=== PATIENT | female | born 1945 | race Caucasian/White ===

== ENCOUNTER 2017-06-27 07:11 | Inpatient (IN) | payer OTHER ==
[~2017-06-27] VITALS: Ht 162.6 cm; Wt 94.6 kg
[~2017-06-27 07:11] MED LIST: AMLO10TA2 PO
[2017-06-27] MEDS ORDERED: GENTAMICIN SULF 80 MG/2 ML VIAL ONE (08:23)
[2017-06-27] MEDS ORDERED: CELECOXIB 100 MG CAP ONE (08:23)
[2017-06-27] MEDS ORDERED: ACETAMINOPHEN IV 100 ML IV ONE (08:23)
[2017-06-27] MEDS ORDERED: PREGABALIN CAPSULE 75 MG CAP ONE (08:23)
[2017-06-27] MEDS ORDERED: VANCOMYCIN PER PHARMACY 0 MG IV SCH (08:30)
[2017-06-27] MEDS ORDERED: CELECOXIB 100 MG CAP PO ONE (08:30)
[2017-06-27] MEDS ORDERED: ACETAMINOPHEN IV 1000 MG/100ML (10MG/ML) IV ONE (08:30)
[2017-06-27] MEDS ORDERED: PREGABALIN CAPSULE 75 MG CAP PO ONE (08:30)
[2017-06-27] MEDS ORDERED: VANCOMYCIN 1GM/250ML 250 ML IV ONE (09:00)
[2017-06-27] MEDS ORDERED: VANCOMYCIN HCL 1000 MG VL ONE (09:10)
[2017-06-27] MEDS ORDERED: MORPHINE SULF(PF) 0.5MG/ML 10ML VIAL ONE (09:10)
[2017-06-27] MEDS ORDERED: KETOROLAC TROMETH 30 MG/ML 1ML VIAL ONE (09:11)
[2017-06-27] MEDS ORDERED: TETRACAINE 1% INJ 2 ML VIAL IJ ONE ×2 (09:28→09:31)
[2017-06-27] MEDS ORDERED: MIDAZOLAM HCL 1MG/1ML-2 ML VIAL ONE (09:31)
[2017-06-27] MEDS ORDERED: fentaNYL CITRATE 100 MCG/2 ML VL ONE (09:31)
[2017-06-27] MEDS ORDERED: ONDANSETRON HCL 4 MG/2 ML VIAL ONE (09:31)
[2017-06-27] MEDS ORDERED: PROPOFOL 10 MG/ML 20 ML IV ONE (09:31)
[2017-06-27] MEDS ORDERED: TRANEXAMIC ACID 1,000 mg/10ml INJ VIAL ONE (10:29)
[2017-06-27] MEDS ORDERED: MORPHINE SULFATE 4 MG/ML SYR/VIAL IV PRN ×2 (10:45→12:45)
[2017-06-27] MEDS ORDERED: KETOROLAC TROMETH 30 MG/ML 1ML VIAL IV ONE (10:45)
[2017-06-27] MEDS ORDERED: METOCLOPRAMIDE HCL 5MG/ml INJ 2ml VIAL IV ONE (10:45)
[2017-06-27] MEDS: LACTATED RINGER'S 1,000 ML IV SCH ×2 (12:34→22:34)
[2017-06-27] MEDS ORDERED: OXYCODONE W/ ACETAMINOPHEN 5/325MG TABLET PO PRN (12:45)
[2017-06-27] MEDS ORDERED: BISACODYL 5 MG EC TAB PO PRN (12:45)
[2017-06-27] MEDS ORDERED: NITROGLYCERIN 0.4 MG SL TAB SL PRN (12:45)
[2017-06-27] MEDS ORDERED: ONDANSETRON HCL 4 MG/2 ML VIAL IV PRN (12:45)
[2017-06-27 14:28] VITALS: BP 119/62
[2017-06-27] MEDS: KETOROLAC TROMETH 30 MG/ML 1ML VIAL IV PRN ×2 (15:46→22:11)
[2017-06-27 16:52] VITALS: BP 120/63
[2017-06-27] MEDS: MORPHINE SULFATE 4 MG/ML SYR/VIAL IV PRN (21:03)
[2017-06-27 22:00] VITALS: BP 127/69
[2017-06-27] MEDS: VANCOMYCIN 1GM/250ML 250 ML IV SCH (22:10)
[2017-06-27] MEDS: oxyCODONE ER 10 MG TAB PO SCH (22:10)
[2017-06-27] MEDS: DOCUSATE SOD 100 MG CAP PO SCH (22:10)
[2017-06-28 05:00] VITALS: BP 127/57
[2017-06-28] MEDS: MORPHINE SULFATE 4 MG/ML SYR/VIAL IV PRN ×4 (06:34→21:54)
[2017-06-28 06:46] LABS: Basophils # (auto) 0.1 uL; Basophils % (auto) 0.6 % (0.0-2.0); Eosinophils # (auto) 0.2 uL; Eosinophils % (auto) 1.8 % (0.0-7.0); Hematocrit 40.8 % (36.0-46.0); Hemoglobin 13.7 g/dL (12.2-16.2); Lymphocytes # (auto) 1.7 uL; Lymphocytes % (auto) 17.2 % (10.0-50.0); Mean Corpuscular Hemoglobin 30.6 pg (28.0-32.0); Mean Corpuscular Hgb Conc. 33.7 g/dL (32.0-36.0); Mean Corpuscular Volume 90.9 fL (80.0-100.0); Monocytes % (auto) 10.1 % (0.0-12.0); Neutrophils % (auto) 70.3 % (37.0-80.0); Nucleated Red Blood Cells % 0.1 %; Platelet Count (auto) 177 10^3/uL (140-450); Red Blood Cells 4.49 10^6/uL (4.0-5.20); Red Cell Distribution Width 13.4 % (11.8-14.3); White Blood Cell 9.9 10^3/uL (4.4-10.8)
[2017-06-28 07:05] LABS: Albumin 3.1 g/dL (3.4-5.0); BUN/Creatinine Ratio 15.2; Bilirubin, Total 0.8 mg/dL (0.2-1.0); Calcium 8.1 mg/dL (8.5-10.1); Potassium 3.7 mmol/L (3.5-5.1); Total Protein 6.6 g/dL (6.4-8.2)
[2017-06-28] MEDS: LACTATED RINGER'S 1,000 ML IV SCH ×2 (08:34→18:39)
[2017-06-28 08:38] VITALS: BP 149/61
[2017-06-28] MEDS: DOCUSATE SOD 100 MG CAP PO SCH ×2 (09:16→21:55)
[2017-06-28] MEDS: KETOROLAC TROMETH 30 MG/ML 1ML VIAL IV PRN (09:16)
[2017-06-28] MEDS: MULTIPLE VITAMIN TAB PO SCH (09:16)
[2017-06-28] MEDS: oxyCODONE ER 10 MG TAB PO SCH ×2 (09:17→21:57)
[2017-06-28] MEDS: amLODIPine BESYLATE 5 MG TAB PO SCH (09:24)
[2017-06-28] MEDS: VANCOMYCIN 1GM/250ML 250 ML IV SCH (10:00)
[2017-06-28] MEDS: ENOXAPARIN SOD 40 MG/0.4 ML SYRINGE SC SCH (10:00)
[2017-06-28] MEDS ORDERED: PATIENTS OWN MEDICATION (Amlodipine Besylate 1 TAB) PO SCH (10:00)
[2017-06-28] MEDS: traMADol HCL 50 MG TAB PO PRN ×2 (12:24→18:39)
[2017-06-28 13:02] VITALS: BP 139/74
[2017-06-28 16:55] VITALS: BP 125/60
[2017-06-28 21:52] VITALS: BP 144/73
[2017-06-29] MEDS: MORPHINE SULFATE 4 MG/ML SYR/VIAL IV PRN ×2 (02:58→07:21)
[2017-06-29] MEDS: LACTATED RINGER'S 1,000 ML IV SCH (04:34)
[2017-06-29 06:00] VITALS: BP_SYST 105; BP_DIAS 128; BP_DIAS 69
[2017-06-29] MEDS: ACETAMINOPHEN 325 MG TAB PO PRN ×3 (07:24→20:10)
[2017-06-29 07:29] VITALS: BP 116/71
[2017-06-29] MEDS ORDERED: SODIUM CHLORIDE 0.9% 500 ML IV ONE (08:30)
[2017-06-29] MEDS ORDERED: DILTIAZEM HCL 25 MG/5 ML VIAL IV ONE ×2 (08:30→08:32)
[2017-06-29] MEDS ORDERED: MORPHINE SULFATE 4 MG/ML SYR/VIAL IV PRN (09:45)
[2017-06-29] MEDS: amLODIPine BESYLATE 5 MG TAB PO SCH (10:00)
[2017-06-29] MEDS: DOCUSATE SOD 100 MG CAP PO SCH ×2 (10:44→22:29)
[2017-06-29] MEDS: MULTIPLE VITAMIN TAB PO SCH (10:44)
[2017-06-29] MEDS: ENOXAPARIN SOD 40 MG/0.4 ML SYRINGE SC SCH (10:45)
[2017-06-29] MEDS: oxyCODONE ER 10 MG TAB PO SCH ×2 (10:45→22:29)
[2017-06-29 10:53] LABS: Basophils # (auto) 0 uL; Basophils % (auto) 0.4 % (0.0-2.0); Eosinophils # (auto) 0.1 uL; Eosinophils % (auto) 0.4 % (0.0-7.0); Hematocrit 35.7 % (36.0-46.0); Hemoglobin 11.9 g/dL (12.2-16.2); Lymphocytes # (auto) 1.8 uL; Lymphocytes % (auto) 14.8 % (10.0-50.0); Mean Corpuscular Hemoglobin 30.4 pg (28.0-32.0); Mean Corpuscular Hgb Conc. 33.4 g/dL (32.0-36.0); Mean Corpuscular Volume 91.1 fL (80.0-100.0); Monocytes # (auto) 1.2 uL; Monocytes % (auto) 10.2 % (0.0-12.0); Neutrophils % (auto) 74.2 % (37.0-80.0); Platelet Count (auto) 155 10^3/uL (140-450); Red Blood Cells 3.92 10^6/uL (4.0-5.20); Red Cell Distribution Width 13.3 % (11.8-14.3); White Blood Cell 12.1 10^3/uL (4.4-10.8)
[2017-06-29 11:27] LABS: BUN/Creatinine Ratio 18.3; Calcium 8.1 mg/dL (8.5-10.1); Potassium 3.5 mmol/L (3.5-5.1)
[2017-06-29 11:51] VITALS: BP 107/48
[2017-06-29] MEDS: CARVEDILOL 3.125 MG TAB PO SCH ×2 (12:57→22:30)
[2017-06-29] MEDS: POTASSIUM CHL 20MEQ/100ML 100 ML IV SCH ×2 (13:53→15:00)
[2017-06-29 16:50] VITALS: BP 110/57
[2017-06-29 22:00] VITALS: BP 115/60
[2017-06-30 05:14] VITALS: BP 130/64
[2017-06-30 07:14] LABS: Basophils # (auto) 0.1 uL; Basophils % (auto) 0.5 % (0.0-2.0); Eosinophils # (auto) 0.2 uL; Eosinophils % (auto) 1.9 % (0.0-7.0); Hematocrit 35.8 % (36.0-46.0); Hemoglobin 11.9 g/dL (12.2-16.2); Lymphocytes # (auto) 1.4 uL; Lymphocytes % (auto) 11.5 % (10.0-50.0); Mean Corpuscular Hemoglobin 30.7 pg (28.0-32.0); Mean Corpuscular Hgb Conc. 33.3 g/dL (32.0-36.0); Mean Corpuscular Volume 92.2 fL (80.0-100.0); Monocytes # (auto) 1.2 uL; Neutrophils # (auto) 9.3 uL; Neutrophils % (auto) 76.1 % (37.0-80.0); Platelet Count (auto) 160 10^3/uL (140-450); Red Blood Cells 3.88 10^6/uL (4.0-5.20); Red Cell Distribution Width 13.6 % (11.8-14.3); White Blood Cell 12.2 10^3/uL (4.4-10.8)
[2017-06-30 07:40] LABS: BUN/Creatinine Ratio 24.6; Calcium 8.4 mg/dL (8.5-10.1); Potassium 4.1 mmol/L (3.5-5.1)
[2017-06-30 09:00] VITALS: BP 153/80
[2017-06-30] MEDS ORDERED: POLYETHYLENE GLYCOL 17 GM PWDR PO SCH (10:00)
[2017-06-30] MEDS: oxyCODONE ER 10 MG TAB PO SCH (10:30)
[2017-06-30] MEDS ORDERED: CARVEDILOL 3.125 MG TAB PO ONE (10:30)
[2017-06-30] MEDS: amLODIPine BESYLATE 5 MG TAB PO SCH (10:31)
[2017-06-30] MEDS: MULTIPLE VITAMIN TAB PO SCH (10:31)
[2017-06-30] MEDS: DOCUSATE SOD 100 MG CAP PO SCH (10:31)
[2017-06-30] MEDS: ENOXAPARIN SOD 40 MG/0.4 ML SYRINGE SC SCH (10:32)
[2017-06-30 13:04] VITALS: BP 137/69
[2017-06-30 14:04] LABS: Urine Bacteria NONE SEEN /hpf (None Seen); Urine Blood Negative /uL (Negative); Urine WBC 5 /hpf (0 - 5)
[2017-06-30] MEDS ORDERED: CARVEDILOL 3.125 MG TAB PO SCH (22:00)
== END 2017-06-30 16:30 | DRG 470 ==
LOC: SUR 07:11 → WEST WING 07:12 → TELE-WESTW 06-29 08:45
PROVIDERS: ADMIT Orthopaedic Surgery Adult Reconstructive Orthopaedic Surgery; ATTEND Orthopaedic Surgery Adult Reconstructive Orthopaedic Surgery
PROC: 0SRD0J9 Replacement of Left Knee Joint with Synthetic Substitute, Cemented, Open Approach (ICD-10-PCS; principal; 2017-06-27 09:34)
DX: M17.12 Unilateral primary osteoarthritis, left knee (principal); E66.01 Morbid (severe) obesity due to excess calories; I47.1 Supraventricular tachycardia; I10 Essential (primary) hypertension; Z96.652 Presence of left artificial knee joint; Z88.0 Allergy status to penicillin; Z68.35 Body mass index [BMI] 35.0-35.9, adult
CPT/HCPCS: 36415; 73560; 80048; 80053; 81001; 83735; 84484; 85025; 93005; 97163; C1713; J0131; J1885; J2250; J2405; J2704; J3480